=== PATIENT | male | born 1970 | race Caucasian/White ===

== ENCOUNTER 2022-10-12 10:23 | Emergency (ER) | payer BC, SELFPAY ==
[2022-10-12] VITALS (8 sets, daily range): BP systolic 114–136; BP diastolic 70–105; PULSE 57–72; RESP 12–22; TEMP 35.5–36.4; O2SAT 12–100; BMI 30.6
[2022-10-12] MEDS: Morphine 4 MG/ML Syringe IV ×2 (10:45→13:43)
--- NOTE | 2022-10-12 10:50 | EX.ED.UPPERE ---
HPI History of Present Illness HPI Narrative: Patient presents with right wrist injury that occurred today. Patient states he tripped and fell. Patient states he landed on his outstretched right wrist. Patient states his pain is worse with any movement. Patient describes it as aching. Patient admits to some tingling in his right hand. Patient denies any weakness. Patient admits to some subjective chills and some rhinorrhea. Patient admits to some nausea due to the pain. Patient denies any vomiting. Patient denies any head injury or loss of consciousness. Patient denies any other injuries. Chief Complaint: Upper Extremity Injury Informant: patient Occured/Mechanism Mechanism/Context: Yes fall and Yes same level fall Onset/Context/Timing Onset: Today Context: Sudden Onset Timing: Continuous Quality of Pain: Aching Location: Right wrist Worsened by: Movement Relieved by: Rest Associated Symptoms Associated Symptoms: Negative for Parasthesia, Weakness or Loss of Funtion PFSH PFSH Medical History no medical history no medical history Home Medications piroxicam 20 mg capsule 20 mg PO DAILY #30 caps 03/02/20 [Rx Last Taken Unknown] hydrocodone-acetaminophen 5-325mg 5mg-325mg 1 tab PO Q6H PRN PRN Pain 3 days #10 TABLETS 10/12/22 [Rx Last Taken Unknown] Allergy/AdvReac Type Severity Reaction Status Date / Time No Known Allergies Allergy Verified 10/12/22 10:26 Surgical History Hx of elbow surgery Social History Smoking Status: Unknown if ever smoked ROS ROS ED Constitutional Constitutional ED: Reports chills; Denies fever(s) Eyes Eyes: Denies blurry vision or change in vision ENT ENT ED: Reports rhinorrhea; Denies sore throat Cardiovascular Cardiovascular: Denies chest pain or palpitations Respiratory/Chest Respiratory/Chest: Denies cough or dyspnea Gastrointestinal Gastrointestinal: Reports nausea; Denies vomiting Genitourinary Genitourinary ED: Denies dysuria or hematuria Musculoskeletal Musculoskeletal: Denies back pain or neck pain Integumentary Denies abscess or rash Neurologic Neurologic: Denies headache(s) or weakness Allergic/Immunologic Allergic/Immunologic ED: Denies mouth swelling or urticaria EXAM Physical Exam Const Vital Signs: 10/12/22 10:25 Temperature 96 F L Temperature Source Temporal Pulse Rate 71 Respiratory Rate 22 H Blood Pressure 125/105 H Blood Pressure Mean 111 Pulse Ox 97 Oxygen Delivery Method Room Air Positive well nourished and well developed General Appearance ED: well developed and NAD HEENT Reports moist mucous membranes Neck full ROM and supple Extremity Extremity Narrative: There is tenderness, edema, and ecchymosis over the right wrist area. There is a deformity noted of the distal radius. Range of motion of the right wrist was limited in all motion secondary to pain. Radial pulses are equal bilaterally. Sensation was intact to light touch in the radial, median, and ulnar areas. Strength is 5/5 in the radial, median, and ulnar areas. Capillary refill was less than 2 seconds in all digits. Neuro oriented x3, CN's II-XII intact bilaterally, moves all extremities, no focal motor deficits and no sensory deficits noted Sensorium / Orientation: alert Motor Exam: strength 5/5 throughout MDM MDM MDM Narrative Medical decision making narrative: Differential diagnosis includes right wrist fracture, dislocation, sprain, and contusion. X-rays of the right wrist will be obtained to assess for fracture and dislocation. Radiography Diagnostic Testing: X-rays of the right wrist were obtained. There are 3 views. On my independent interpretation, there is a fracture of the distal radius with dorsal angulation. There is also a nondisplaced fracture of the ulnar styloid. There is some soft tissue swelling. Radiologist also interpreted the x-rays and agrees. Repeat x-rays of the right wrist were obtained after reduction of the fracture. There are 2 views. On my independent interpretation, there is improved alignment. Splint has been placed. Radiologist also interpreted the x-rays and agrees. Treatment and Re-Evaluation Narrative: Patient was advised of the findings. Patient was advised of the need for sedation and reduction. Patient was explained the procedure. Patient was given the opportunity ask any questions. Patient had no further questions. Patient was placed on continuous cardiac and pulse oximeter monitors. Patient was placed on oxygen by nasal cannula. Patient was given 100 mg propofol. After adequate sedation, the distal radius fracture was reduced using finger traps and traction. A well-padded custom made short arm AP splint was applied. Neurovascular exam was intact before and after the procedure. Patient tolerated the procedure well. Patient was given a prescription for a short course of [place]. Patient was given a referral to Dr. Vivar who is on-call for orthopedics. Patient was instructed to ice and elevate the right wrist. Patient was instructed to return if worse in any way. Patient understood and was agreeable with the plan. All questions were answered. Procedures Procedural Sedation 1 (Initial Baseline): Consent Signed: Yes Any Problems With Anesthesia: No You/Your family experience fever (hyperthermia) w/anesthesia: No Sedation medication: Propofol Dose: 100 Route: IV Maliampati Score: Class II ASA Classification: I Discharge Plan Triage Chief Complaint: Upper Extremity Injury ED Provider: Carlos Hernandez Dx/Rx/DC Orders Clinical Impression: Closed fracture of right distal radius and ulna, Fall Instructions: ED Fracture, Wrist, General Prescriptions: New hydrocodone-acetaminophen [hydrocodone-acetaminophen] 5-325 mg tablet 1 tab PO Q6H PRN PRN (Reason: Pain) 3 Days Qty: 10 0RF No Action piroxicam 20 mg capsule 20 mg PO DAILY Qty: 30 1RF Rx Instructions: Do not take in conjunction with other NSAIDs. Tylenol is okay. Primary Care Provider: Care Physician,No Primary Referrals: Aleida Hodges MD [Med Staff - Professor Of Engineering] - 5-7 Days Miko Vivar DO [Med Staff - Active Staff] - 5-7 Days Disposition Disposition: Home, Self Care
[2022-10-12] MEDS: Ondansetron 4 MG/2 ML Vial IV (10:52)
--- NOTE | 2022-10-12 10:57 | RAD_ITS ---
STUDY: X-RAY - RIGHT WRIST REASON FOR EXAM: Male, 52 years old. Pain and deformity following a fall. TECHNIQUE: 3 view(s) of the wrist were obtained. COMPARISON: None. FINDINGS: Nondisplaced transverse fracture of the distal radial metaphysis. Mild degree of the dorsal facing. Nondisplaced avulsion of the ulnar styloid. Normal radiocarpal articulation. Normal distal radioulnar articulation. Normal carpal bones. Normal carpal articulations. Normal carpometacarpal articulation of the thumb. Normal second through fifth carpometacarpal articulations. Normal visualized metacarpal bones. Soft tissue swelling. RAD/Wrist min 3 Views IMPRESSION: Nondisplaced transverse fracture of the distal radial metaphysis with a mild degree of dorsal facing. Nondisplaced avulsion of the ulnar styloid. Soft tissue swelling. Electronically Signed: Tobin Jha MD at 11:27 EDT ,
[2022-10-12] MEDS: Propofol 200 MG/20 ML Vial IV BOLUS (13:44)
--- NOTE | 2022-10-12 14:35 | RAD_ITS ---
STUDY: X-RAY - RIGHT WRIST REASON FOR EXAM: Male, 52 years old. Distal radial fracture. Post reduction. TECHNIQUE: 2 view(s) of the wrist were obtained. COMPARISON: None. FINDINGS: The patient is status post reduction. There is satisfactory reduction. RAD/Wrist 2 Views IMPRESSION: Satisfactory reduction of the distal radial fracture. Electronically Signed: Tobin Jha MD at 14:52 EDT ,
== END 2022-10-12 15:29 | disposition home or self-care (01) ==
PROVIDERS: Emergency Provider Emergency Medicine; Visit Provider Emergency Medicine
DX: S52.501A Unspecified fracture of the lower end of right radius, initial encounter for closed fracture (principal); S52.601A Unspecified fracture of lower end of right ulna, initial encounter for closed fracture; W18.30XA Fall on same level, unspecified, initial encounter
CPT/HCPCS: 25675; 29125; 73100; 73110; 99152; 99284; J7030; A4216; J2405

== ENCOUNTER 2022-10-19 10:02 | Day surgery (SDC) | payer BC, SELFPAY ==
--- NOTE | 2022-10-18 08:04 | EKG12_ITS ---
Test Reason : PRE OP Blood Pressure : / mmHG Vent. Rate : 076 BPM Atrial Rate : 076 BPM P-R Int : 132 ms QRS Dur : 080 ms QT Int : 354 ms P-R-T Axes : 067 059 065 degrees QTc Int : 398 ms Normal sinus rhythm Normal ECG Confirmed by GILLES KEMP, BERONICA ([id number]), visual effects editor ULISES BHAGAT ([id number]) on 10/19/2022 8:16:32 AM Referred By: Miko Vivar Confirmed By:BERONICA CAMPOVERDE MD
[2022-10-18 08:46] LABS: Absolute Lymphocyte Count 2.99 X10^3/uL (0.83-4.51); Basophil# 0.08 X10^3/uL; Eosinophil# 0.35 X10^3/uL; Eosinophils% 4.3 % (0-5); Hematocrit 48.2 % (40-54); Hemoglobin 16.8 g/dL (13.0-16.5); Lymphocyte # 2.99 X10^3/ul (0.83-4.51); Lymphocyte % 36.7 % (19-41); Mean Corp Hgb Conc 34.9 g/dL (32-36); Mean Corpuscular Hgb 30.5 pg (27.0-32.0); Mean Corpuscular Volume 87.5 fL (80-94); Mean Platelet Vol. 11.6 fl (6.2-12.0); Monocyte% 8.6 % (0-10); NRBC Flagged by Analyzer 0 % (0-5); Neutrophil # 3.99 X10^3/uL (2.7-7.7); Platelet Count 250 K/mm3 (150-450); RBC Distribution Width CV 11.5 % (11.6-14.6); Red Blood Count 5.51 M/mm3 (4.6-6.2); White Blood Count 8.1 K/mm3 (4.4-11.0)
[2022-10-19] VITALS (7 sets, daily range): BP systolic 129–170; BP diastolic 70–112; PULSE 61–77; RESP 15–17; TEMP 36.1–36.4; O2SAT 93–99; BMI 30.2
[2022-10-19] MEDS: Lactated Ringers 1,000 ML 15 ML IV (11:01)
--- NOTE | 2022-10-19 11:05 | PCM.HP.BLA ---
History and Physical Date of Admission: 10/19/22 [facility] [address] [place] [address] OFFICE VISIT Date of Service:? 10/17/22 MR#: [id number] Acct: [id number] Name:LIAM RODAS Rep #: [id number] : 1970 ? ? Provider: Dr. Miko Vivar DO Age/Sex:? 52/M ? ? Location: [facility] [email or web address] Status: Signed Intake Vital Signs ? 10/12/2309:25 10/17/2309:07 Height 6 ft 6 ft Weight: ? 220 lb BMI ? 29.8 Intake Visit Reasons:?RIGHT WRIST Is patient in pain?: Yes Pain scale (1-10): 5 Allergies No Known Allergies Allergy (Verified 10/17/22 10:07) PFSH Surgical History? Hx of elbow surgery Social History?(Updated 10/17/22 @ 10:08 by Linda Sams) household members:? family Smoking Status:? Former smoker alcohol intake:? current HPI RIGHT WRIST Details: Parts of this documentation were recorded by a scribe, this documentation accurately reflects the service provided and the decisions made by me, Dr. Miko Vivar, 10/17/22 0759. LIAM ALLRED is a 52 year old M here today new patient for right wrist fracture. DOI: 10/12/22 Patient tripped and fell over a ladder. He hyperextended his wrist after landing on an outstretched arm. Patient had a deformity and went to the ED. He had xrays which showed a fracture, he did have a closed reduction and he was put into a splint. He has not removed his splint. Patient has swelling and bruising of his fingers. Patient is able to move his fingers. Patient has numbness and tingling into his fingers at time. The ED gave him vicodin which he took the last one yesterday.? Ortho Exam General General: Yes no acute distress Neurologic: Yes alert and Yes oriented x3 Psychologic: Yes reasonable and appropriate Right Wrist/Hand Skin/Wound: Yes CDI, Yes Swelling, Yes Ecchymosis and Yes capillary refill normal WRIST: He is able to move all of his fingers and has intact sensation to light touch no significant swelling in the forearm the fingers have some swelling which is expected Left Wrist/Hand Skin/Wound: Yes Swelling and Yes Ecchymosis Head: Normocephalic Atraumatic Chest: symmetrical rise, non-labored breathing, no audible wheeze Abdomen: no guarding, non-rigid Supplemental Info 10/12/2022 postreduction x-ray left wrist: Improved alignment distal radius fracture however there is some residual dorsal tilt of about 15 degrees 10/12/2022 x-ray left wrist: Dorsally angulated distal radius extra-articular fracture, associated ulnar styloid base fracture, there is some shortening at the radial fracture site Coding Level of Care Code Off vis,new,level 3 Diagnoses Closed fracture of right distal radius and ulna? S52.501A; S52.601A Assessment and Plan Assessment and Plan (1) Closed fracture of right distal radius and ulna: ?Status:?Acute Plan Educated the patient about the anatomy of the wrist. He did have a closed reduction in the in the ER however he continues to have some dorsal tilt of the articular surface, with dorsal comminution there is risk that he has already lost the reduction or will continue to lose the reduction as time progresses however we could proceed with closed reduction and casting and careful monitoring versus open reduction internal fixation.? Risk benefits and alternatives of both were reviewed.? Including risk of bleeding infection nerve artery tissue damage need for further surgery continued pain DRUJ instability is a risk with having the ulnar styloid fracture and we will assess for this intraoperatively which may necessitate increased postoperative splinting. ?Explained his options- remove splint and try a manipulation, or an ORIF. Spoke with him about the risks and benefits of both options. Explained the surgery procedure. He should not do any lifting greater than 1/2 pound. Spoke with him about the benefits of stopping smoking for 6 weeks post op. Patient will not be able to drive when taking pain medications. Depending on the stability of the DRUJ joint, he might need to be splinted for longer post op. Spoke with him about taking tylenol and he should not take ibuprofen until after his surgery. He should elevate his hand throughout the week to help with swelling. Follow up in 1-2 weeks depending on intraoperative findings for post op or sooner if pain, swelling, numbness or associated symptoms, or concerns develop.? All questions answered. Patient in agreement of plan. 10/17/22 1107 <Electronically signed by Miko Vivar DO> Date Miko Vivar DO Cosigner Signature: Date (if applicable) ? CC: ? ~ I have examined the patient and the H&P has been reviewed. There are no clinical changes since date of exam.
[2022-10-19] MEDS: Cefazolin 2 GM in 0.9% Normal Saline 100 ML IV (11:30)
--- NOTE | 2022-10-19 11:40 | RAD_ITS ---
EXAM: XR RIGHT WRIST COMPLETE, 3 OR MORE VIEWS CLINICAL INDICATION: ORIF, DISTAL RADIUS TECHNIQUE: Frontal, lateral and oblique views of the right wrist. COMPARISON: No relevant prior studies available. FINDINGS: BONES/JOINTS: Intraoperative images were obtained. These show placement of an orthopedic plate and screws across a distal radius fracture. Alignment is anatomic. Preservation of the joint space. No sclerotic or destructive changes observed. SOFT TISSUES: Unremarkable. No soft tissue swelling or gas. No radiopaque foreign body. RAD/Wrist min 3 Views IMPRESSION: ORIF of a distal radius fracture. Electronically Signed: Aknit Logan MD at 0:00 EDT ,
--- NOTE | 2022-10-19 12:52 | PCM.OP.BLANK ---
Operative Report Date of Procedure: 10/19/22 Preoperative diagnosis: [displaced distal radius fracture extra-articular] Postoperative diagnosis: [Same] Procedure: ORIF of the distal radius Implants: Synthes distal radius variable angle locking plate Complications: [None] Indication for procedure: 52-year-old male patient who had a injury to his right wrist sustaining a displaced dorsally angulated distal radius extra-articular fracture and an ulnar styloid base fracture it was closed reduced in the emergency room department. He did have dorsal comminution and some residual dorsal angulation of the articular surface, we discussed risk of fracture subsidence and risk and benefits of surgical versus nonsurgical intervention including casting versus ORIF we discussed risks benefits and alternatives of conservative versus surgical intervention. Including the risk of bleeding infection nerve artery tissue damage need for further surgery continued pain postoperative stiffness need for postoperative physical therapy and the expected postoperative course. Procedure: The patient was met in the preoperative holding area the operative extremity was identified by both patient and physician and marked. Patient was met by anesthesia she was brought back to the operating room on a wheeled cart and transferred to the operating table in the supine position anesthesia was started. A well-padded tourniquet was placed on the upper arm of the operative extremity. She was prepped and draped in the usual sterile fashion. A Time out was called to ensure the proper patient procedure and extremity were being contemplated. A 15 blade scalpel was used to make a linear incision over the FCR tendon this was carried down through the skin and subcutaneous tissue. Electrocautery was used to maintain hemostasis. Blaine retractors were used. The FCR tendon sheath was incised and the FCR tendon was mobilized radially. A deep blade scalpel was used to perforate the fascia of the deep FCR tendon sheath and Littler scissors were used to dissect proximally and distally. Blunt dissection was performed a yesika was placed on the radial and ulnar side of the radius. The pronator quadratus was partially torn from the injury and was released off the radial border of the radius with electrocautery and was elevated with a gu elevator. The Hohmann retractors were then placed deep to this muscle. The fracture site was visualized and was freed of hematoma and clot debris with the use of small rongeur and Catlett. The fracture was then reduced with the use of a Catlett and ulnar deviation and wrist flexion. This was checked under fluoroscopy to ensure that an adequate reduction could be performed. A plate was then positioned over the fracture site and temporarily fixed to the bone with K wires. A cortical screw was then placed in the shaft and sequential locking screws were placed distally this was checked on both AP and lateral projections to ensure screw placement was not penetrating the joint and was in the proper location. Bone drill sleeve was used for the radial styloid screw and a variable angle fashion. The remainder of the cortical screws were placed in the shaft. And the fracture and hardware were visualized in both AP and lateral projections in good alignment and fracture positioning. The wound was thoroughly irrigated. Pronator quadratus was not repairable. A subcutaneous stitch with 3-0 Vicryl was performed followed by 4-0 nylon vertical mattress stitches. Followed by Xeroform 4 x 4 ABD web roll stockinette more web roll and an Jamari wrap. There is no DRUJ instability with shuck testing or piano gu sign the tourniquet was let down. There was no complications intraoperatively and the patient was brought back to the PACU in stable condition where she received an axillary block. All counts were correct.
--- NOTE | 2022-10-19 12:55 | DCINST_ITS ---
Discharge Instructions Diet Discharge Diet: No restrictions Dressing / Incision Call your doctor if you observe: Shortness of breath and Chest pain Additional Dressing/Incision Instructions:: Strict elevation of operative extremity above heart for next 72 hours. Ice 15 minutes on 15 minutes off. Continue ice and elevation for 7 days postoperatively. Encourage finger range of motion. No lifting pushing or pulling more than a coffee cup. Must keep splint on clean and dry. Follow-up in office in 1 week Follow Up Care Please Follow Up With: Miko Vivar DO When: 2 weeks Test Results: Test results from this visit will be discussed in further detail at your follow- up appointment, if applicable. Discharge Plan Admission Primary Reason for Your Visit: Right distal radius ORIF Attending Provider: Miko Vivar Primary Care Provider: Na Rodriguez Discharge Orders/Prescriptions Prescriptions: New cephalexin [cephalexin] 500 mg capsule 1,000 mg PO Q8 Qty: 4 0RF Rx Instructions: take 2 tabs at 9:00 pm and 2 tabs after 5 am when you wake up oxycodone 5 mg tablet 5 - 10 mg PO Q4H PRN (Reason: pain) 3 Days Qty: 25 0RF Continued acetaminophen [Tylenol] 325 mg Capsule 1,000 mg PO Q6H PRN (Reason: Pain) No Action nicotine (polacrilex) 2 mg Lozenge 2 mg BUCCAL Q4H PRN (Reason: nicotine cravings) Referrals / Follow Up: Na Rodriguez, RESOURCE MANAGEMENT PLANNER-C [Primary Care Provider] - Disposition Disposition (needs filled in before D/C Order can be placed): Home, Self Care
[2022-10-19] MEDS: Cefazolin 1 GM/50 ML BAG IV (14:00)
== END 2022-10-19 15:08 | disposition home or self-care (01) ==
LOC: SDC 10:04 → AC 10:05
PROVIDERS: Anesthesiology; PCP Nurse Practitioner Family; Referring Provider Orthopaedic Surgery; Visit Provider Orthopaedic Surgery
PROC: (CPT 25607; principal; 2022-10-19 11:20)
DX: S52.501A Unspecified fracture of the lower end of right radius, initial encounter for closed fracture (principal); S52.601A Unspecified fracture of lower end of right ulna, initial encounter for closed fracture; Z87.891 Personal history of nicotine dependence; R05.3 Chronic cough; W01.198A Fall on same level from slipping, tripping and stumbling with subsequent striking against other object, initial encounter
CPT/HCPCS: 25607; 01830; 36415; 73110; 76000; 85025; 93005; C1713; J7120; J2405

== ENCOUNTER 2022-12-07 09:00 | Outpatient (RCR) | payer BC, SELFPAY ==
--- NOTE | 2022-11-21 15:49 | HP.OTEVAL ---
Patient's Visit Information LIAM ALLRED is a 52 year old M, referred to Occupational Therapy by Dr. Miko Vivar DO, with a diagnosis of right distal radius fx. Date of Evaluation: 11/15/22 Occupational Therapist: Ludmila Swan, ALYSE/Debbie, CHT - Subjective This 52 year old male was seen for OT eval with dx of right distal radius fx. pt states DOI was October 12 due to fall. pt states went to on Oct 17 2022. pt states then went to sx on October 19, 2022. pt would like to use his right hand for all ADLs and IADls so he can return to his PLOF. pt works at [employer]. - Pain right wrist 0 Pain Intensity Range: 3 - ROM Forearm: right/left supination/pronation WNL Wrist: right 60/45 left 70/60 - Strength Criminal Justice Teacher: right 50# ( with discomfort) left 85# Lateral Pinch: right 12# left 18# Tripod Pinch: right 10# left 14# - Sensation Sensation Comments: denies - Quick DASH-Disab of Arm,Shoulder& Hand Quick DASH Score: 50.0000 - Goals Goal:ROM equal to unaffected hand: Yes Goal:Criminal Justice Teacher/Pinch strength at least 75% of unaffected hand: Yes Goal:No pain with affected hand use: Yes Goal:Full use of affected hand in daily activities including: Yes - Rehabilitation General Assessment: pt demo with a decrease in right wrist ROM and weakness following a right distal radius fx. This limits pts IND. with ADLs and IADLs. Pt would benefit from skilled OT services 1-2x week for 4 weeks to assist pt in ROM and strengthening. Today pt was ed. in AROM ex. and demo understanding. Pt demo understanding and agree to POC. Rehabilitation Potential: Good - Anticipated Interventions A/AAROM/PROM, Strengthening, Triggerpoint Release, Modalities, Orthoses, Joint Protection/Energy Conservation, Ergonomic Education, Education re assistive Equipment, Education re Diagnosis, Home Program - Visit Plan Frequency: 1-2x /Week Duration: 4 Weeks TEXT: Thank you for the opportunity to evaluate your patient. For Medicare and Medicare HMO plans, please review the plan of care and approve it. It will need to be FAXED BACK to us at [phone] for Medicare purposes. Please let me know if there are questions or concerns regarding this plan of care. Physician Signature: Date:
--- NOTE | 2023-01-31 10:25 | HP.OT.NRP ---
Patient Information Patient Information: LIAM ALLRED was seen in my office for initial evaluation on 11/15/22. The following Plan of Care was established for this patient: POC Established Initial Frequency: 1-2x /Week Initial Duration: 4 Weeks Plan: pt will call to schedule as needed in next two weeks - if not D/C pt Anticipated Interventions Anticipated Interventions: A/AAROM/PROM, Strengthening, Triggerpoint Release, Modalities, Orthoses, Joint Protection/Energy Conservation, Ergonomic Education, Education re assistive Equipment, Education re Diagnosis and Home Program Last Seen Last Seen: This patient was last seen in our office . Pertinent comments regarding their Occupational therapy will appear below: pt arrives s/p 7 weeks ORIF of right. Pt stated gave him permission to go back to work on 12/12/22; but work wants him to wait the 2 weeks. Also increased restriction to 10# wt limit. Pt was last seen on 12/07/22 and has not called to schedule more apts. Pt d.c at this time. At this point I will be discontinuing this patient from occupational therapy. I would be happy to see this patient again in the future if found appropriate by the physician. Thank you! Ludmila Swan, OTR/L, CHT
== END 2022-12-07 19:00 | disposition home or self-care (01) ==
LOC: OT 09:00
PROVIDERS: PCP Nurse Practitioner Family; Referring Provider Orthopaedic Surgery; Visit Provider Orthopaedic Surgery
DX: Z47.89 Encounter for other orthopedic aftercare (principal)
CPT/HCPCS: 97110; 97166

== ENCOUNTER → 2024-01-27 | Outpatient (CLI) | payer BC, SELFPAY ==
--- NOTE | 2024-01-27 17:10 | RAD_ITS ---
EXAM: XR LUMBOSACRAL SPINE, 2 OR 3 VIEWS CLINICAL INDICATION: LBP w/ LLE paresthesias TECHNIQUE: Frontal and lateral views of the lumbar spine and sacrum. COMPARISON: Lumbar spine, 07/16/2005. FINDINGS: VERTEBRAE: Multilevel endplate osteophytosis and facet arthrosis. Preservation of the normal lumbar lordosis. No fracture, spondylolysis, or spondylolisthesis. SACRUM/COCCYX: Symmetric mild arthrosis of the SI joints. DISC SPACES: Multilevel intervertebral disc height loss. VASCULATURE: Vascular calcifications. GASTROINTESTINAL TRACT: Normal as visualized. Included bowel gas pattern is non-obstructive. RAD/Lumbar Spine 2 or 3 Views IMPRESSION: No fracture, spondylolysis, or spondylolisthesis. Degenerative changes progressed since 2005 examination. Electronically Signed: Srikanth Damian DO at 18:40 EDT ,
== END | disposition home or self-care (01) ==
LOC: MTRAD 17:10
PROVIDERS: PCP Nurse Practitioner Family; Referring Provider Physician Assistant; Visit Provider Physician Assistant
DX: M54.50 Low back pain, unspecified (principal); R20.2 Paresthesia of skin
CPT/HCPCS: 72100

== ENCOUNTER → 2024-04-27 | Outpatient (CLI) | payer BC, SELFPAY ==
--- NOTE | 2024-04-27 18:54 | CT_ITS ---
EXAM: CT MAXILLOFACIAL WITHOUT INTRAVENOUS CONTRAST CLINICAL INDICATION: SINUSITIS TECHNIQUE: Helically acquired images were obtained of the face without intravenous contrast. This CT exam was performed using one or more of the following dose reduction techniques: automated exposure control, adjustment of the mA and/or kV according to patient size, and/or use of iterative reconstruction technique. COMPARISON: No relevant prior studies available. FINDINGS: BONES/JOINTS: Sphenoid and mild maxillary osteitis. Rightward nasal septal deviation and mild spurring of approximately 5 mm from midline. Bilateral middle turbinate eddi bullosa. The nasal cavity is otherwise clear. SOFT TISSUES: No significant abnormality. No focal subcutaneous swelling. No discrete fluid collections. ORBITS: No acute findings. SINUSES: Mild diffuse mucosal thickening in the bilateral maxillary sinuses with at least transient obstruction of the right ostiomeatal unit obstruction of the left ostiomeatal unit with polypoid appearance of mucosal thickening. Mucosal thickening in the bilateral frontal sinuses extending through the opacified frontal recesses. Scattered mucosal thickening in the anterior and posterior ethmoid air cells bilaterally. Mucosal thickening in the sphenoid sinuses bilaterally. Sphenoethmoidal recesses are clear. MASTOID AIR CELLS: Normal as visualized. Clear. DENTAL: No significant findings. No periodontal osseous erosion. CT/Sinus/Facial Bone IMPRESSION: 1. Diffuse sinonasal mucosal thickening. At least transient obstruction of the right and apparent obstruction of the left ostiomeatal unit as well as the bilateral frontal recesses. 2. Nasal septal deviation and spurring. Electronically Signed: Srikanth Damian DO at 23:51 EST ,
== END | disposition home or self-care (01) ==
PROVIDERS: Referring Provider Otolaryngology; Visit Provider Otolaryngology
DX: J32.9 Chronic sinusitis, unspecified (principal)
CPT/HCPCS: 70486